=== PATIENT | female | born 1965 | race Caucasian/White ===

== ENCOUNTER 2020-10-26 10:58 | Emergency (ER) | payer BC ==
[~2020-10-26] VITALS: Ht 165.1 cm; Wt 65.8 kg
[2020-10-26] MEDS ORDERED: SUMATRIPTAN SUCCINATE 50 MG TABLET PO ONE (11:30)
[2020-10-26] MEDS ORDERED: SUMA100T PO (11:31)
[2020-10-26] MEDS ORDERED: SUMATRIPTAN SUCCINATE 50 MG TABLET ONE (11:35)
--- NOTE | 2020-10-26 11:57 | NUR ---
PT WAS EVALUATED BY DR PAREDES. PTWAS D/C.'d TO HOME. D/C INSTRUCTIONS GIVEN TO THE PT BY DR PAREDES.
[2020-10-26 11:58] VITALS: BP 133/78
--- NOTE | 2020-10-26 12:10 | NUR ---
Hand Method Lasting Machine Operator consultation: 11:45am: Hand Method Lasting Machine Operator consultation requested for mental health resources. This LOGGING CREW FOREMAN met with the patient, bedside in the ED. Patient is a 54 year old female, who came in to the ED for a migraine. Patient is alert, oriented, receptive to meeting with this LOGGING CREW FOREMAN. Patient is currently living at a residential mental health facility, [facility], in [place]. Patient stated that she has been there for about 1 week, but wanted additional resources on other residential mental health facility, as she is not very satisfied with [facility]. Patient reports mental health diagnosis of Depression, PTSD, and Borderline Personality Disorder, with history of 7 suicidal attempts. Patient currently denies SI. Patient denies hallucinations. Patient is cooperative and engaged in dialogue with this LOGGING CREW FOREMAN. Patient stated that she is open to any facility in [facility], since she is originally from [place]. This LOGGING CREW FOREMAN stated she would gather some resources for the patient and return to provide them to the patient. Patient agreed. 12:05pm: This LOGGING CREW FOREMAN returned to provide patient with resources, but patient had already departed the ED. Dr. Roblero notified, who then called the patient and left patient a voicemail stating that the resources were available to her in the ED, if she wanted to return back to get them. List of resources left with Dr. Rolbero.
== END 2020-10-26 11:59 | disposition home or self-care (01) ==
LOC: ER 10:58
DX: G43.909 Migraine, unspecified, not intractable, without status migrainosus (principal); Z76.0 Encounter for issue of repeat prescription; F32.9 Major depressive disorder, single episode, unspecified; Z91.5 Personal history of self-harm; Z86.03 Personal history of neoplasm of uncertain behavior; Z90.710 Acquired absence of both cervix and uterus
CPT/HCPCS: A4663